=== PATIENT | female | born 1975 | race Caucasian/White ===

== ENCOUNTER → 2018-01-01 | Outpatient (CLI) | payer BC | LOC: MC.RAD 11-24 13:40 | DX: Z12.31 Encounter for screening mammogram for malignant neoplasm of breast (principal); R92.0 Mammographic microcalcification found on diagnostic imaging of breast ==

== ENCOUNTER → 2018-01-08 | Outpatient (CLI) | payer BC | LOC: MC.RAD 10:54 | DX: R92.0 Mammographic microcalcification found on diagnostic imaging of breast (principal) ==

== ENCOUNTER → 2018-01-14 | Outpatient (CLI) | payer BC | LOC: MC.RAD 08:26 | DX: R92.0 Mammographic microcalcification found on diagnostic imaging of breast (principal); Z98.82 Breast implant status ==

== ENCOUNTER 2018-10-21 12:45 | Outpatient (RCR) | payer BC | END 2018-10-26 | disposition home or self-care (01) | LOC: MKS.ESL.PT | DX: M25.512 Pain in left shoulder (principal) ==

== ENCOUNTER 2018-10-29 15:03 | Outpatient (RCR) | payer BC | END 2019-01-27 | disposition home or self-care (01) | LOC: MKS.ESL.PT | DX: M25.512 Pain in left shoulder (principal) ==

== ENCOUNTER → 2019-04-26 | Outpatient (CLI) | payer BC | LOC: MC.RAD 15:00 | DX: Z12.31 Encounter for screening mammogram for malignant neoplasm of breast (principal) ==

== ENCOUNTER → 2020-12-14 | Outpatient (CLI) | payer BC | LOC: MC.RAD 09:27 | DX: Z12.31 Encounter for screening mammogram for malignant neoplasm of breast (principal) ==

== ENCOUNTER → 2022-03-01 | Outpatient (CLI) | payer BC | LOC: MC.RAD 12:50 | DX: Z12.31 Encounter for screening mammogram for malignant neoplasm of breast (principal); N64.89 Other specified disorders of breast ==

== ENCOUNTER → 2022-03-06 | Outpatient (CLI) | payer BC | LOC: MC.RAD 06:51 | DX: N60.02 Solitary cyst of left breast (principal) ==

== ENCOUNTER 2022-07-26 06:58 | Day surgery (SDC) | payer BC ==
[~2022-07-26] VITALS: Ht 167.6 cm; Wt 75.4 kg
[2022-07-26] MEDS ORDERED: ZYRTEC5 MG PO (07:24)
[2022-07-26] MEDS ORDERED: FIBER GUMMIES2.5 GM PO (07:24)
[2022-07-26] MEDS ORDERED: OMEGA-3 1000 MG1 CAP PO (07:25)
[2022-07-26] MEDS ORDERED: MULTI VITAMINS1 TAB PO (07:25)
[2022-07-26] MEDS ORDERED: PROBIOTIC ACID1 EAC3 PO (07:26)
[2022-07-26] MEDS ORDERED: VITAMIND3 5000 PO (07:27)
[2022-07-26] MEDS ORDERED: NATURE'S BLEND600 M2 PO (07:27)
[2022-07-26 07:29] VITALS: BP 121/71; PULSE 80; TEMP 98.9
[2022-07-26 08:50] VITALS: BP 104/60; PULSE 60; TEMP 97.4
--- NOTE | 2022-07-26 08:50 | NUR ---
PT TO BAY 4 VIA CART FROM ENDO ROOM, WALKED TO CHAIR, IN ROOM, CALL LIGHT IN REACH, TAKES SNACK AND DR INTO SEE PT AND DISCUSS RESULTS
[2022-07-26 09:05] VITALS: BP 103/76; PULSE 50
--- NOTE | 2022-07-26 09:15 | NUR ---
IV D'CD INTACT, REVIEWED DISCHARGE INST. WITH PT ON PROCEDURE, ACTIVITY AND PRECAUTIONS WITH VERBAL UNDERSTANDING. UP IN ROOM DRESSED, DISCHARGED VIA W/C TO CAR WITH AT 0920
[2022-07-26 09:20] VITALS: BP 104/57; PULSE 55
== END 2022-07-26 09:24 | disposition home or self-care (01) ==
LOC: SDCO 06:58
DX: Z12.11 Encounter for screening for malignant neoplasm of colon (principal); K63.5 Polyp of colon; K64.0 First degree hemorrhoids; K62.89 Other specified diseases of anus and rectum
CPT/HCPCS: J2704; J7120

== ENCOUNTER → 2024-05-21 | Outpatient (CLI) | payer BC ==
[~2024-05-21] MED LIST: FIBER GUMMIES2.5 GM PO; MULTI VITAMINS1 TAB PO; NATURE'S BLEND600 M2 PO; OMEGA-3 1000 MG1 CAP PO; PROBIOTIC ACID1 EAC3 PO; VITAMIND3 5000 PO; ZYRTEC5 MG PO
== END ==
LOC: MC.RAD 09:29
DX: Z12.31 Encounter for screening mammogram for malignant neoplasm of breast (principal)